=== PATIENT | female | born 2000 | race Caucasian/White ===

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

== ENCOUNTER 2019-11-15 20:26 | Emergency (ER) | payer OTHER ==
[~2019-11-15] VITALS: Wt 57.2 kg
[2019-11-15 20:31] VITALS: BP 137/82
[2019-11-15] MEDS ORDERED: DOXYCYCLINE100 M3 PO (22:18)
== END 2019-11-15 22:46 | disposition home or self-care (01) ==
LOC: ED 20:26
DX: J32.9 Chronic sinusitis, unspecified (principal); Z88.0 Allergy status to penicillin; Z88.1 Allergy status to other antibiotic agents

== ENCOUNTER 2019-12-05 17:21 | Emergency (ER) | payer OTHER ==
[~2019-12-05] VITALS: Ht 162.5 cm; Wt 56.7 kg
[~2019-12-05 17:21] MED LIST changes: +DOXYCYCLINE100 M3 PO
[2019-12-05 17:32] VITALS: BP 135/77
[2019-12-05] MEDS ORDERED: PREDNISONE20 M1 PO (18:19)
== END 2019-12-05 18:48 | disposition home or self-care (01) ==
LOC: ED 17:21
DX: L25.9 Unspecified contact dermatitis, unspecified cause (principal); Z88.0 Allergy status to penicillin; Z88.1 Allergy status to other antibiotic agents

== ENCOUNTER → 2020-10-10 | Outpatient (CLI) | payer OTHER ==
[~2020-10-10] MED LIST changes: +PREDNISONE20 M1 PO
== END | disposition home or self-care (01) ==
LOC: COVID19 11:13
PROVIDERS: ATTEND Internal Medicine
DX: U07.1 COVID-19 (principal)

== ENCOUNTER 2021-12-18 10:46 | Emergency (ER) | payer OTHER ==
[~2021-12-18] VITALS: Ht 162.5 cm; Wt 65.8 kg
[2021-12-18 11:08] VITALS: BP 140/80
== END 2021-12-18 11:50 | disposition home or self-care (01) ==
LOC: ED 10:46
DX: S93.402A Sprain of unspecified ligament of left ankle, initial encounter (principal); Z88.0 Allergy status to penicillin; Z88.1 Allergy status to other antibiotic agents; X50.1XXA Overexertion from prolonged static or awkward postures, initial encounter; Y93.89 Activity, other specified; Y92.89 Other specified places as the place of occurrence of the external cause; Y99.8 Other external cause status